=== PATIENT | female | born 2000 | race American Indian/Alaskan Native ===

== ENCOUNTER 2020-02-29 11:38 | Emergency (ER) | payer BC ==
[2020-02-29 15:20] LABS: Basophils % (Auto) 0.3 % (0.0-1.8); Eosinophils % (Auto) 0.2 % (0.0-4.3); Hematocrit 39.9 % (30.3-42.9); Hemoglobin 13.1 gm/dl (10.1-14.3); Lymphocytes # (Auto) 1.3 K/mm3 (1.2-5.4); Lymphocytes % (Auto) 14.2 % (13.4-35.0); Mean Corpuscular HGB Conc 33 % (30-34); Mean Corpuscular Volume 92 fl (79-97); Monocytes # (Auto) 0.3 K/mm3 (0.0-0.8); Monocytes % (Auto) 3.3 % (0.0-7.3); Platelet Count 362 K/mm3 (140-440); Red Blood Count 4.32 M/mm3 (3.65-5.03); Red Cell Distribution Width 13.1 % (13.2-15.2)
[2020-02-29 15:40] LABS: BUN/Creatinine Ratio 18; Blood Urea Nitrogen 11 mg/dL (7-17); Calcium 9.6 mg/dL (8.4-10.2); Hemolysis Index 9
--- NOTE | 2020-02-29 17:19 | Emergency Department Report ---
ED Psych HPI - General Chief Complaint: Psych Stated Complaint: BEHAVIOR Time Seen by Provider: 02/29/20 11:57 Source: patient, family Mode of arrival: Stretcher - History of Present Illness Initial Comments: Patient is a 19-year-old F Haitian female who is presenting with suicidal thoughts. Patient is very upset and the only potential tell us regarding the cause of her suicidal ideation is is her girlfriend. Patient crying hysterically during the initial assessment. Patient has had suicide attempts in the past. She denies any auditory or visual hallucinations or homicidal ideations at this time. - Related Data Allergies Allergy/AdvReac Type Severity Reaction Status Date / Time No Known Allergies Allergy Unverified 02/29/20 17:15 ED Review of Systems ROS: Stated complaint: BEHAVIOR Other details as noted in HPI Comment: All other systems reviewed and negative ED Past Medical Hx - Past Medical History Previous Medical History?: No - Surgical History Past Surgical History?: No - Social History Smoking Status: Never Smoker Substance Use Type: Marijuana ED Physical Exam - General Limitations: Other General appearance: alert, anxious - Head Head exam: Present: atraumatic, normocephalic - Eye Eye exam: Present: normal appearance - ENT ENT exam: Present: mucous membranes moist - Neck Neck exam: Present: normal inspection - Respiratory Respiratory exam: Present: normal lung sounds bilaterally. Absent: respiratory distress - Cardiovascular Cardiovascular Exam: Present: regular rate, normal rhythm. Absent: systolic murmur, diastolic murmur, rubs, gallop - GI/Abdominal GI/Abdominal exam: Present: soft, normal bowel sounds - Extremities Exam Extremities exam: Present: normal inspection - Back Exam Back exam: Present: normal inspection - Neurological Exam Neurological exam: Present: alert, oriented X3 - Psychiatric Psychiatric exam: Present: normal affect, normal mood - Skin Skin exam: Present: warm, dry, intact, normal color. Absent: rash ED Course Vital Signs 02/29/20 15:51 Respiratory 17 Rate O2 Sat by Pulse 98 Oximetry - Reevaluation(s) Reevaluation #1: 02/29/20 17:19 Patient is medically cleared at this time. Patient has been seen by mental health assessors and was suggested that the patient be placed on a 1013 ED Medical Decision Making - Lab Data Result diagrams: 02/29/20 15:08 02/29/20 15:08 Critical care attestation.: If time is entered above; I have spent that time in minutes in the direct care of this critically ill patient, excluding procedure time. ED Disposition Condition: Stable Referrals: SHREE PHIPPS MD [Primary Care Provider] - 3-5 Days
[2020-02-29 17:26] LABS: Bilirubin,Urine NEG (Negative); Blood,Urine MOD (Negative); Color,Urine Yellow (Yellow); Mucus,Urine FEW /HPF; Protein,Urine <15 mg/dL mg/dL (Negative); RBC,Urine < 1.0 /HPF (0.0-6.0); Urobilinogen,Urine < 2.0 mg/dL (<2.0)
[2020-02-29 17:27] LABS: HCG Qualitative,Urine Negative (Negative)
[2020-02-29 17:36] LABS: Amphetamine Screen,Urine PRESUMPTIVE NEGATIVE; Benzodiazepines Screen,Urine PRESUMPTIVE NEGATIVE; Cocaine Screen,Urine PRESUMPTIVE NEGATIVE; Methadone Screen,Urine PRESUMPTIVE NEGATIVE; Opiate Screen,Urine PRESUMPTIVE NEGATIVE
[2020-02-29 17:56] LABS: Cannabinoid Screen,Urine PRESUMPTIVE POSITIVE
[2020-02-29 20:22] VITALS: BP 144/81
== END 2020-03-01 01:05 ==
LOC: ED 11:38 → EEVIPCON 11:38 → ED 03-01 01:05
DX: R45.851 Suicidal ideations (principal); F12.90 Cannabis use, unspecified, uncomplicated
CPT/HCPCS: 36415; 80048; 80307; 80320; 81001; 81025; 85025; G0480